=== PATIENT | male | born 1990 | race Caucasian/White ===

== ENCOUNTER 2022-09-05 04:48 | Emergency (ER) | payer OTHER ==
[~2022-09-05] VITALS: Ht 177.8 cm; Wt 75.8 kg
[2022-09-05 05:10] VITALS: BP 179/90
[2022-09-05] MEDS ORDERED: LORazepam 0.5 MG TAB PO ONE (05:30)
[2022-09-05] MEDS ORDERED: HYDR50CA PO (05:32)
== END 2022-09-05 05:59 | disposition home or self-care (01) ==
LOC: ER 04:48
DX: F41.9 Anxiety disorder, unspecified (principal); R06.02 Shortness of breath; F17.210 Nicotine dependence, cigarettes, uncomplicated; F12.10 Cannabis abuse, uncomplicated